=== PATIENT | male | born 1990 | race Caucasian/White ===

== ENCOUNTER 2023-01-01 22:31 | Inpatient (IN) | payer BC ==
[~2023-01-01] VITALS: Ht 167.6 cm; Wt 75.0 kg
[2023-01-01] MEDS ORDERED: pantoprazole 40mg IV 80 MG in normal saline 100ml IV soln 100 ML IV ONE (22:55)
[2023-01-01] MEDS ORDERED: ringers solution, lacted 1,000 ML IV ONE (22:55)
[2023-01-01] MEDS ORDERED: iohexol 300mg/ml 100ml inj. ONE (23:13)
[2023-01-01] MEDS ORDERED: pantoprazole 40MG/NS 100ML BAG 100 ML IV ONE ×2 (23:15→23:30)
[2023-01-01 23:35] LABS: ALANINE AMINOTRANSFERASE 101 U/L (12-78); ALBUMIN 4.2 G/DL (3.4-5.0); ALBUMIN/GLOBULIN RATIO 1.1 (1.1-1.5); ALKALINE PHOSPHATASE 62 IU/L (46-116); ANION GAP 14 (8-16); APTT 21 SECONDS (22-32); ASPARTATE AMINO TRANSFERASE 53 U/L (10-37); BILIRUBIN,TOTAL 0.6 MG/DL (0.1-1.0); BLOOD UREA NITROGEN 20 MG/DL (7-18); BUN/CREATININE RATIO 21.3 (10.0-20.0); CALCIUM 9.3 MG/DL (8.5-10.1); CHLORIDE 100 MMOL/L (99-107); CREATININE 0.94 MG/DL (0.60-1.10); GLUCOSE 140 MG/DL (70-104); POTASSIUM 3.3 MMOL/L (3.5-5.1); PROTHROMBIN TIME 10.9 SECONDS (9.0-12.0); SODIUM 139 MMOL/L (135-145); TOTAL CARBON DIOXIDE 24.8 MMOL/L (24-32); eCRCL 100 ML/MIN; eGFR > 90 ML/MIN
[2023-01-01 23:43] LABS: ETHANOL 101 MG/DL (<10)
[2023-01-01 23:54] LABS: BASOPHILS # (AUTO) 0.1 X10'3 (0-0.2); BASOPHILS % (AUTO) 1.3 % (0-1); EOSINOPHILS # (AUTO) 0.2 X10'3 (0-0.9); EOSINOPHILS % (AUTO) 2.1 % (0-6); HEMATOCRIT 40.7 % (42.0-52.0); HEMOGLOBIN 13.9 g/dl (14.0-17.9); LYMPHOCYTES # (AUTO) 2.7 X10'3 (1.1-4.8); LYMPHOCYTES % (AUTO) 25.2 % (21-51); MEAN CORPUSCULAR HEMOGLOBIN 33.4 PG (27.0-31.0); MEAN CORPUSCULAR HGB CONC 34.2 g/dL (33.0-36.5); MEAN CORPUSCULAR VOLUME 97.7 FL (78-98); MONOCYTES % (AUTO) 9.6 % (2-12); NEUTROPHILS # (AUTO) 6.6 X10'3 (1.8-7.7); NEUTROPHILS % (AUTO) 61.8 % (42-75); PLATELET COUNT 228 X10'3 (140-440); RED BLOOD COUNT 4.17 X10'6 (4.70-6.10); RED CELL DISTRIBUTION WIDTH 13.2 % (11.5-14.5); WHITE BLOOD COUNT 10.7 X10'3 (4.5-11.0)
[2023-01-01 23:55] LABS: BILIRUBIN,URINE NEGATIVE (Neg); CLARITY,URINE CLEAR (Clear); COLOR,URINE YELLOW (Yellow); GLUCOSE, URINE NEGATIVE (Neg); KETONES,URINE 40 mg/dl (Neg); LEUKOCYTE ESTERASE ,URINE NEGATIVE (Neg); NITRITES, URINE NEGATIVE (Neg); OCCULT BLOOD,URINE NEGATIVE (Neg); PROTEIN,URINE TRACE mg/dl (Neg); UROBILINOGEN,URINE 0.2 E.U/dL (0.2-1.0)
[2023-01-01 23:58] LABS: URINE AMPHETAMINE SCREEN NEGATIVE (Neg); URINE BARBITUATE SCREEN NEGATIVE (Neg); URINE BENZODIAZEPINES SCREEN NEGATIVE (Neg); URINE CANNABINOID SCREEN NEGATIVE (Neg); URINE COCAINE SCREEN NEGATIVE (Neg); URINE METHADONE SCREEN NEGATIVE (Neg); URINE OPIATE SCREEN NEGATIVE (Neg); URINE PHENCYCLIDINE SCREEN NEGATIVE (Neg)
[2023-01-02] VITALS (8 sets, daily range): BP systolic 121–137; BP diastolic 76–85; PULSE 76–99; RESP 15–16; TEMP 97.7–98.8; O2SAT 95–99
[2023-01-02 00:10] LABS: AMYLASE 62 U/L (25-115); CKMB RELATIVE INDEX 0.4 RATIO (0-2.5); CREATINE KINASE 154 U/L (39-308); CREATINE KINASE MB 0.6 ng/ml (0.3-3.6); LIPASE 143 U/L (73-393)
[2023-01-02 00:19] LABS: PRO BRAIN NATRIURETIC PEPTIDE < 30 PG/ML (0-125)
--- NOTE | 2023-01-02 00:46 | NUR ---
SEIZURE PRECAUTIONS--PADS IN PLACE
[2023-01-02 01:02] LABS: UA COLLECTION TYPE CLN CATCH MIDSTREAM
[2023-01-02 01:04] LABS: RBC,URINE 0-2 /HPF (0-2); SQUAMOUS EPITHELIAL CELL,UR FEW /LPF (FEW); WBC,URINE 0-4 /HPF (0-4)
[2023-01-02 01:05] LABS: BACTERIA,URINE FEW /HPF (Neg); MUCUS STRANDS FEW /LPF (Neg)
[2023-01-02] MEDS ORDERED: ondansetron/PF 4mg/2ml inj IV ONE ×2 (01:05→01:10)
[2023-01-02] MEDS ORDERED: ringers solution, lacted 1,000 ML IV ONE (01:10)
[2023-01-02] MEDS ORDERED: piperacillin/tazo 3.375gm/50ml 50 ML IV STA (01:22)
[2023-01-02] MEDS ORDERED: albuterol 2.5 MG/3 ML nebule NEB PRN (02:25)
[2023-01-02] MEDS ORDERED: magnesium 2GM in 50ml NS 50 ML IV PRN (02:25)
[2023-01-02] MEDS ORDERED: mag hydrox/Alum hydrox/simeth 30ml oral suspension PO PRN (02:25)
[2023-01-02] MEDS ORDERED: haloperidol 5mg tablet PO PRN (02:25)
[2023-01-02] MEDS ORDERED: ondansetron/PF 4mg/2ml inj IV PRN (02:25)
[2023-01-02] MEDS ORDERED: ipratropium/albuterol 3ml nebule NEB PRN (02:25)
[2023-01-02] MEDS ORDERED: LORazepam 2 mg/ml vial IV PRN ×2 (02:25→09:30)
[2023-01-02] MEDS ORDERED: magnesium 4gm in 100ml NS 100 ML IV PRN (02:25)
[2023-01-02] MEDS ORDERED: octreotide inj. 500 MCG in normal saline 100ml IV soln 97.5 ML IV SCH ×2 (02:25→02:40)
[2023-01-02] MEDS ORDERED: haloperidol lactate 5mg/ml inj IM PRN (02:25)
[2023-01-02] MEDS ORDERED: acetaminophen 325mg tablet PO PRN (02:25)
[2023-01-02] MEDS ORDERED: potassium Cl 20 mEq SR tablet PO PRN (02:25)
[2023-01-02] MEDS ORDERED: magnesium hydroxide 30ml (MOM) UD suspension PO PRN (02:25)
[2023-01-02] MEDS ORDERED: potassium Cl 40MEQ/1/2NS 520ml 520 ML IV PRN (02:25)
[2023-01-02] MEDS ORDERED: NO HOME MEDS (03:02)
[2023-01-02] MEDS: pantoprazole 40MG/NS 100ML BAG 100 ML IV SCH ×4 (06:09→21:06)
--- NOTE | 2023-01-02 06:18 | NUR ---
mri screening form sent
--- NOTE | 2023-01-02 06:56 | NUR ---
reassessment of meds given on noc shift charted not done. not done on this shift.
[2023-01-02] MEDS ORDERED: piperacillin/tazo 3.375gm/50ml 50 ML IV ONE (08:00)
[2023-01-02] MEDS: K and/or MAG REPLACEMENT MC SCH ×2 (08:00→19:58)
[2023-01-02] MEDS: thiamine 100mg/ml 2ml inj. IV SCH ×3 (08:25→21:06)
[2023-01-02] MEDS: folic acid 1mg/0.2ml inj IV SCH (08:26)
--- NOTE | 2023-01-02 10:00 | NUR ---
PATIENT DOWN HAVING PROCEDURE AT THE TIME OF VITALS AT THIS TIME.
[2023-01-02] MEDS ORDERED: GADOTERATE MEGLUMINE 7.5 MMOL/15 ML VIAL IV ONE (12:35)
[2023-01-02] MEDS ORDERED: traMADol 50MG tablet PO PRN (16:55)
[2023-01-02] MEDS: acetaminophen 325mg tablet PO PRN ×2 (17:12→23:04)
--- NOTE | 2023-01-02 18:27 | NUR ---
Problems reprioritized. Patient report given, questions answered & plan of care reviewed with JADEN REYES.
--- NOTE | 2023-01-02 18:30 | NUR ---
Patient in room [facility] 4024. I have received report from ERIC Dupont and had the opportunity to ask questions and assume patient care.
[2023-01-02] MEDS: potassium Cl 20 mEq SR tablet PO PRN (20:01)
[2023-01-03] MEDS: potassium Cl 20 mEq SR tablet PO PRN (00:30)
[2023-01-03] MEDS: pantoprazole 40MG/NS 100ML BAG 100 ML IV SCH ×2 (02:45→07:47)
--- NOTE | 2023-01-03 06:05 | NUR ---
Problems reprioritized. Patient report given, questions answered & plan of care reviewed with ERIC Dupont.
[2023-01-03 06:13] LABS: MONOCYTES # (AUTO) 0.8 X10'3 (0-0.9); NEUTROPHILS # (AUTO) 2.6 X10'3 (1.8-7.7)
[2023-01-03 06:16] LABS: BASOPHILS % (AUTO) 1.2 % (0-1); EOSINOPHILS % (AUTO) 1.2 % (0-6); HEMATOCRIT 33.7 % (42.0-52.0); HEMOGLOBIN 11.6 g/dl (14.0-17.9); LYMPHOCYTES # (AUTO) 0.4 X10'3 (1.1-4.8); LYMPHOCYTES % (AUTO) 10.6 % (21-51); MEAN CORPUSCULAR HEMOGLOBIN 33.6 PG (27.0-31.0); MEAN CORPUSCULAR HGB CONC 34.4 g/dL (33.0-36.5); MEAN CORPUSCULAR VOLUME 97.8 FL (78-98); MEAN PLATELET VOLUME 9.4 FL (7.4-10.4); MONOCYTES % (AUTO) 20.8 % (2-12); NEUTROPHILS % (AUTO) 66.2 % (42-75); PLATELET COUNT 128 X10'3 (140-440); RED BLOOD COUNT 3.45 X10'6 (4.70-6.10); RED CELL DISTRIBUTION WIDTH 13.3 % (11.5-14.5)
[2023-01-03 06:20] LABS: ALANINE AMINOTRANSFERASE 79 U/L (12-78); ALBUMIN 3.6 G/DL (3.4-5.0); ALBUMIN/GLOBULIN RATIO 1.2 (1.1-1.5); ALKALINE PHOSPHATASE 47 IU/L (46-116); AMYLASE 39 U/L (25-115); ANION GAP 10 (8-16); ASPARTATE AMINO TRANSFERASE 39 U/L (10-37); BILIRUBIN,TOTAL 0.3 MG/DL (0.1-1.0); BLOOD UREA NITROGEN 11 MG/DL (7-18); BUN/CREATININE RATIO 13.4 (10.0-20.0); CALCIUM 8.4 MG/DL (8.5-10.1); CHLORIDE 100 MMOL/L (99-107); CREATININE 0.82 MG/DL (0.60-1.10); GLUCOSE 94 MG/DL (70-104); LIPASE 63 U/L (73-393); MAGNESIUM 1.8 MG/DL (1.5-2.4); POTASSIUM 4.1 MMOL/L (3.5-5.1); SODIUM 136 MMOL/L (135-145); TOTAL CARBON DIOXIDE 25.7 MMOL/L (24-32); TOTAL PROTEIN 6.7 G/DL (6.4-8.2); eCRCL 115 ML/MIN; eGFR > 90 ML/MIN
--- NOTE | 2023-01-03 06:25 | NUR ---
Patient in room [facility]TH[facility] 4024. I have received report from JADEN REYES and had the opportunity to ask questions and assume patient care.
[2023-01-03 06:29] VITALS: BP 120/82; PULSE 84; RESP 16; TEMP 98.3; O2SAT 99
[2023-01-03 06:30] LABS: PROTHROMBIN TIME 11.1 SECONDS (9.0-12.0)
[2023-01-03] MEDS: thiamine 100mg/ml 2ml inj. IV SCH (07:49)
[2023-01-03] MEDS: folic acid 1mg/0.2ml inj IV SCH (07:49)
[2023-01-03 08:00] VITALS: RESP 18
[2023-01-03] MEDS: K and/or MAG REPLACEMENT MC SCH (08:00)
--- NOTE | 2023-01-03 08:48 | NUR ---
PAGE EEG FOR THE FIRST TIME DURING SHIFT. PAGED THEM AT LEAST TWO TIMES YESTERDAY 01/02 BUT NEVER HEARD FROM THEM. STILL ATTEMPTING TO CONTACT THEM TO SEE UP DIAGNOSTICS.
[2023-01-03 10:00] VITALS: BP 119/86; PULSE 89; RESP 16; TEMP 98.8; O2SAT 97
[2023-01-03 12:10] VITALS: PULSE 85; RESP 18; O2SAT 97
--- NOTE | 2023-01-03 17:37 | NUR ---
PAGER ID: [phone] MESSAGE: Cresencio Crawford [id number] re: [place] EEG results posted in the Other Reports if you want to check if he is okay for DC
[2023-01-03] MEDS ORDERED: NALT50TA PO (17:43)
[2023-01-03] MEDS ORDERED: PANT-47 PO (17:43)
--- NOTE | 2023-01-03 18:26 | NUR ---
Patient discharge was done with family in the room. Patient left with all of his belongings. Patients IV taken out at the time discharge canula was whole and intact upon inspection. Patient educated on new medications and follow up. Patient was taken down to private vehicle upon discharge.
[2023-01-03] MEDS ORDERED: pantoprazole 40mg Tablet.DR PO SCH (20:00)
[2023-01-03] MEDS ORDERED: thiamine 100mg tablet PO SCH (21:00)
[2023-01-04] MEDS ORDERED: LORazepam 2 mg/ml vial IV PRN (02:25)
[2023-01-04] MEDS ORDERED: LORazepam 1 MG tablet PO PRN (02:25)
[2023-01-04] MEDS ORDERED: folic acid 1mg tablet PO SCH (08:00)
[2023-01-06] MEDS ORDERED: LORazepam 1 MG tablet PO PRN (02:25)
[2023-01-06] MEDS ORDERED: LORazepam 2 mg/ml vial IV PRN (02:25)
== END 2023-01-03 18:24 | disposition home or self-care (01) | DRG 378 ==
LOC: ER 22:32 → ED HOLD 01-02 02:35 → ORTHO 4S 01-02 07:20
PROVIDERS: ADMIT Family Medicine; ATTEND Family Medicine
PROC: 4A00X4Z Measurement of Central Nervous Electrical Activity, External Approach (ICD-10-PCS; principal; 2023-01-03)
DX: K29.21 Alcoholic gastritis with bleeding (principal); G40.89 Other seizures; K92.0 Hematemesis; F17.210 Nicotine dependence, cigarettes, uncomplicated; E87.6 Hypokalemia; D64.9 Anemia, unspecified; I95.9 Hypotension, unspecified; F10.20 Alcohol dependence, uncomplicated; Z80.1 Family history of malignant neoplasm of trachea, bronchus and lung; Z83.3 Family history of diabetes mellitus; Z71.6 Tobacco abuse counseling; Z79.899 Other long term (current) drug therapy
CPT/HCPCS: 36415; 70450; 70553; 71045; 71260; 74177; 80053; 80305; 80320; 81001; 81003; 82150; 82550; 82553; 83605; 83690; 83735; 83880; 84100; 84484; 85025; 85610; 85730; 86885; 86900; 86901; 87040; 87081; 93005; 94760; 95816; 96365; 96375; 97116; 97161; 97530; 99285; A6258; A9575; C9113; G0378; J2354; J2405; J2543; J3411; J3490; J7030; J7120; Q9967

== ENCOUNTER 2023-07-15 15:56 | Emergency (ER) | payer BC, OTHER ==
[~2023-07-15] VITALS: Ht 167.6 cm; Wt 77.2 kg
[~2023-07-15 15:56] MED LIST: NALT50TA PO; PANT-47 PO
[2023-07-15 16:08] VITALS: BP 140/99; PULSE 89; RESP 16; TEMP 97.9; O2SAT 98
[2023-07-15] MEDS: LIDOcaine 1% 30ml preserv. free vial IJ ONE (18:09)
[2023-07-15] MEDS: TETanus/Pertussis (Acell)/Diphther VAC/PF (Tdap-Adult) 0.5ml syringe IMVAC ONE (18:34)
[2023-07-15] MEDS ORDERED: AMOX-117 PO (18:36)
== END 2023-07-15 18:56 | disposition home or self-care (01) ==
LOC: ER 15:56
DX: S61.212A Laceration without foreign body of right middle finger without damage to nail, initial encounter (principal); Z72.89 Other problems related to lifestyle; Z79.899 Other long term (current) drug therapy; W26.8XXA Contact with other sharp object(s), not elsewhere classified, initial encounter; Y93.89 Activity, other specified; Y92.89 Other specified places as the place of occurrence of the external cause; Y99.8 Other external cause status
CPT/HCPCS: 12001; 73130; 90471; 90715; 99283; J7030; A6449

== ENCOUNTER 2023-10-31 08:57 | Emergency (ER) | payer BC, OTHER ==
[~2023-10-31] VITALS: Ht 167.6 cm; Wt 72.7 kg
[2023-10-31 11:10] VITALS: BP 128/93; PULSE 76; RESP 14; TEMP 97.7; O2SAT 99
== END 2023-10-31 11:12 | disposition home or self-care (01) ==
LOC: ER 08:59
DX: M25.561 Pain in right knee (principal); Z79.899 Other long term (current) drug therapy
CPT/HCPCS: 29505; 73564; 99284